=== PATIENT | male | born 1960 | race Caucasian/White ===

== ENCOUNTER 2017-05-24 11:52 | Emergency (ER) | payer OTHER ==
--- NOTE | 2017-05-24 13:29 | DIAGNOSTIC IMAGING REPORT ---
PROCEDURE: XR CHEST 1 VIEW INDICATION: HISTORY OF CVA TECHNIQUE: Portable AP view 01:20 p.m. COMPARISON: None. FINDINGS: Lungs are clear. Heart and mediastinum are normal. Thorax is normal. IMPRESSION: 1. Negative chest.
--- NOTE | 2017-05-24 14:30 | DIAGNOSTIC IMAGING REPORT ---
PROCEDURE: CT HEAD WITHOUT CONTRAST INDICATION: Unilateral weakness. History of prior CVA. TECHNIQUE: Noncontrast axial images with sagittal and coronal reformations. COMPARISON: None. FINDINGS: There is a 6 cm x 2.5 cm low density area in the left parietal occipital region most compatible with an old area of infarction. An acute or subacute infarction is less likely. The rest of the brain and ventricles are normal. No evidence of an hemorrhage. No evidence of hydrocephalous. Sinuses and mastoids are normal. IMPRESSION: 1. There is a large 6 cm x 2.5 cm low density area left parietal occipital region most consistent with an old area of infarction. An acute or subacute area of ischemia is considered less likely. 2. Otherwise negative head CT. 3. Findings discussed with Dr. Samantha Burns at [address] scans at this facility use dose modulation, iterative reconstruction, and/or weight-based dosing when appropriate to reduce radiation dose to as low as reasonably achievable.
--- NOTE | 2017-05-24 17:29 | DIAGNOSTIC IMAGING REPORT ---
PROCEDURE: MR BRAIN W/WO CONTRAST INDICATION: STROKE SX TECHNIQUE: Multiplanar multisequence MRI imaging of the brain without contrast. Post administration of 10 ml ProHance gadolinium based IV contrast, three plane T1 fat sat sequences were obtained. COMPARISON: None. FINDINGS: The midline structures are normally formed. The ventricular system is normal in size. Basal cisterns are patent. Flow voids in the major intracranial vessels are normal. No vascular malformations seen post contrast. There is an old left posterior temporal infarct. No restricted diffusion to suggest acute ischemia. No evidence of acute or chronic intraparenchymal or extra-axial hemorrhage. No mass, mass effect, or midline shift. No suspicious enhancement. Normal signal in the visible bones. The sinuses are normally aerated. Visible extracranial soft tissues including the orbits are normal. IMPRESSION: 1. Old left posterior temporal infarct. 2. Minimal periventricular small-vessel ischemic disease.
--- NOTE | 2017-05-24 17:49 | DIAGNOSTIC IMAGING REPORT ---
PROCEDURE: MRA HEAD WITHOUT CONTRAST INDICATION: Left arm pain and weakness. Prior CVA. TECHNIQUE: Thin-cut gradient axial images with 3D MIP reconstructions in sagittal, axial, and coronal projections. COMPARISON: Comparison is made to MRI brain and head CT studies today (05/24/2017). FINDINGS: [place] and intracranial vessels are within normal limits. There is no evidence of aneurysm or vascular malformation. No evidence of stenosis or occlusion. IMPRESSION: 1. Normal MR angiogram of the [place] and intracranial vessels. 2. Findings discussed with Dr. Samantha Burns.
--- NOTE | 2017-05-24 17:49 | DIAGNOSTIC IMAGING REPORT ---
PROCEDURE: MRA HEAD WITHOUT CONTRAST INDICATION: Left arm pain and weakness. Prior CVA. TECHNIQUE: Thin-cut gradient axial images with 3D MIP reconstructions in sagittal, axial, and coronal projections. COMPARISON: Comparison is made to MRI brain and head CT studies today (05/24/2017). FINDINGS: [place] and intracranial vessels are within normal limits. There is no evidence of aneurysm or vascular malformation. No evidence of stenosis or occlusion. IMPRESSION: 1. Normal MR angiogram of the [place] and intracranial vessels. 2. Findings discussed with Dr. Samantha Burns.
--- NOTE | 2017-05-24 17:53 | ED NURSING NOTES ---
Clinical Report - Nurses [address] [place] [address] 05/24/2017 11:55 [id number] Triage time 11:56. Acuity: LEVEL 3. Chief Complaint: NUMBNESS and (Left arm). Alert. No acute distress. CL COMA SCORE: [place] Coma Scale: 15- eyes open spontaneously (4); best verbal response- oriented x 4 (5); best motor response- obeys commands (6). --12:03 Carito Castro R.N. <<STRICKEN ENTRY-- 11:56 05/24/17. BP: 187/104. HR: 70. RR: 17. O2 saturation: 99%. Temp: 97.6 F (oral). Pain level now: 0/10. --12:03 Carito Castro R.N. --END STRIKE>> Correction --12:06 Carito Castro R.N. 12:06 05/24/17. BP: 184/104 taken on the left arm. HR: 70. RR: 17. O2 saturation: 99% on room air. Temp: 97.6 F. Pain level now: 0/10. --12:07 Carito Castro R.N. Weight: 116.1 kg stated. Height/Length: 70 inches Per Patient. BMI: 36.7. --11:59 Carito Castro R.N. Medications Atorvastatin Calcium Oral (Tablet 40 mg), daily. --11:59 Carito Castro R.N. Lisinopril Oral 5 mg, daily. --12:00 Carito Castro R.N. Metoprolol Tartrate Oral (Tablet 25 mg), bid. --12:00 Carito Castro R.N. Medication/allergy information source: the patient's pill bottles. --12:03 Carito Castro R.N. Allergies No Known Drug Allergy. --11:58 Carito Castro R.N. History Arrived by private vehicle. Historian: patient. Accompanied by family. Primary physician ([facility]). This started about 25 minutes ago. ( felt numbness on top of left forearm, lasted about - minutes, now gone). SOCIAL HX: Never smoker. Occasional alcohol use. No drug use. FALL RISK ASSESSMENT: Fall risk assessment completed. No fall risk identified. FUNCTIONAL ASSESSMENT: Functional assessment: no impairments noted. LEARNING NEEDS ASSESSMENT: The learning needs assessment revealed no barriers. --12:03 Carito Castro R.N. PROBLEMS: CVA - Cerebrovascular Accident. --12:59 Angel Ramírez R.N. Chest Pain. Rectal Bleed. --13:00 Angel Ramírez R.N. ADDITIONAL SURGERIES: Cardiac Catheterization. --12:59 Angel Ramírez R.N. Assessment GENERAL / NEURO / PSYCH: Alert. Oriented X 4. Appears in no acute distress. Patient appears calm and cooperative. RESPIRATORY: Respirations not labored. SKIN: Skin is warm and dry. --12:03 Carito Castro R.N. Interventions ID band on patient. To treatment room. --12:03 Carito Castro R.N. PHYSICAL ASSESSMENT 12:04 05/24/17. Ambulatory to room. Patient gowned. GENERAL / NEURO / PSYCH: Awake. Oriented X 4. Alert. Appears in no acute distress. Speech normal. Mood/affect normal. Moves all extremities. RESPIRATORY: Respirations not labored. CVS: Cardiac rhythm: sinus rhythm; PACs. SKIN: Skin is warm and dry. --12:04 Carito Castro R.N. NURSING PROGRESS NOTES 12:05/24/17. sanitation worker cleaning equipment, pulse oximeter and NIBP monitor placed on patient. Patient gowned. Head of bed elevated. Call light placed in reach. Side rails up x 1. Bed placed in lowest position. Brakes of bed on. --12:04 Carito Castro R.N. 12:05/24/17. BP: 184/107 taken on the right arm. HR: 74. RR: 18. --12:06 Carito Castro R.N. 12:12 05/24/2017 Site #1 started via IV in the left hand with an 20g angiocath; two attempts. Saline lock flushed with 10 mL saline (unable to draw blood from IV). --12:17 Angel Ramírez R.N. 13:03 05/24/17. ( spoke with staff stating that pt had a chest pains/possible [place] in the past at [place], [place]. Pt also had stroke care at [place], [place], [place]). --13:03 Angel Ramírez R.N. 13:23 05/24/17. Cardiac rhythm: normal sinus rhythm; PACs. --13:23 Angel Ramírez R.N. 13:21 05/24/17. BP: 187/99. HR: 61. RR: 16. O2 saturation: 100% on room air. --13:23 Angel Ramírez R.N. 14:05 05/24/17. Patient transported to CT by stretcher with tech. --14:05 Angel Ramírez R.N. 14:38 05/24/17. The patient is calm and resting quietly. Overall patient status is the same- he states feels the same. GENERAL / NEURO / PSYCH: Alert. Oriented X 4. Affect appears normal. RESPIRATORY: No respiratory distress. SKIN: Skin is warm and dry. --14:38 Carito Castro R.N. 14:37 05/24/17. BP: 179/84. HR: 50. RR: 12. O2 saturation: 99% on room air. Pain level now: 0/10. --14:38 Carito Castro R.N. 15:40. ( MRI consent completed). --15:51 Angel Ramírez R.N. 15:52 05/24/17. Patient transported to MRI by wheelchair with tech. --15:52 Angel Ramírez R.N. <<STRICKEN ENTRY-- 17:19 05/24/17. Patient returned from MRI by stretcher with tech. --17:19 Angel Ramírez R.N. --END STRIKE>> Correction --17:19 Angel Ramírez R.N. 17:19 05/24/17. Patient returned from MRI by wheelchair with tech. --17:20 Angel Ramírez R.N. 17:30 05/24/17. --17:30 Angel Ramírez R.N. 17:29 05/24/17. BP: 176/102. HR: 76. RR: 16. O2 saturation: 99% on room air. Pain level now: 0/10. --17:30 Angel Ramírez R.N. DISPOSITION / DISCHARGE 18:07 05/24/2017 Site #1 removed upon discharge. Catheter intact. Bandaid applied. --18:07 Angel Ramírez R.N. 18:08 05/24/17. Condition at departure: improved. The goals identified in the patient's plan of care were met. No learning barriers present. Discharge instructions provided and reviewed with the patient. Reviewed warnings. Reviewed medication(s). Treatments reviewed. Patient verbalized understanding. Written instructions provided in [place]. The patient was discharged by the physician. He was discharged home and accompanied by family. He left the Emergency Department ambulatory and via private vehicle. Family member driving. FALL RISK ASSESSMENT: Fall risk assessment completed. No fall risk identified. --18:08 Angel Ramírez R.N. 18:07 05/24/17. BP: 148/98. HR: 63. RR: 14. O2 saturation: 100% on room air. Temp: 98.2 F (oral). Pain level now: 0/10. --18:08 Angel Ramírez R.N. 18:08 05/24/17. Departure time: 18:08 May 24 2017. --18:08 Angel Ramírez R.N. Locked/Released at 05/27/2017 10:48 by Carito Castro R.N.
--- NOTE | 2017-05-24 17:53 | ED NURSING NOTES ---
Clinical Report - Nurses [address] [place] [address] 05/24/2017 11:55 [id number] Triage time 11:56. Acuity: LEVEL 3. Chief Complaint: NUMBNESS and (Left arm). Alert. No acute distress. CL COMA SCORE: [place] Coma Scale: 15- eyes open spontaneously (4); best verbal response- oriented x 4 (5); best motor response- obeys commands (6). --12:03 Carito Castro R.N. <<STRICKEN ENTRY-- 11:56 05/24/17. BP: 187/104. HR: 70. RR: 17. O2 saturation: 99%. Temp: 97.6 F (oral). Pain level now: 0/10. --12:03 Carito Castro R.N. --END STRIKE>> Correction --12:06 Carito Castro R.N. 12:06 05/24/17. BP: 184/104 taken on the left arm. HR: 70. RR: 17. O2 saturation: 99% on room air. Temp: 97.6 F. Pain level now: 0/10. --12:07 Carito Castro R.N. Weight: 116.1 kg stated. Height/Length: 70 inches Per Patient. BMI: 36.7. --11:59 Carito Castro R.N. Medications Atorvastatin Calcium Oral (Tablet 40 mg), daily. --11:59 Carito Castro R.N. Lisinopril Oral 5 mg, daily. --12:00 Carito Castro R.N. Metoprolol Tartrate Oral (Tablet 25 mg), bid. --12:00 Carito Castro R.N. Medication/allergy information source: the patient's pill bottles. --12:03 Carito Castro R.N. Allergies No Known Drug Allergy. --11:58 Carito Castro R.N. History Arrived by private vehicle. Historian: patient. Accompanied by family. Primary physician ([facility]). This started about 25 minutes ago. ( felt numbness on top of left forearm, lasted about - minutes, now gone). SOCIAL HX: Never smoker. Occasional alcohol use. No drug use. FALL RISK ASSESSMENT: Fall risk assessment completed. No fall risk identified. FUNCTIONAL ASSESSMENT: Functional assessment: no impairments noted. LEARNING NEEDS ASSESSMENT: The learning needs assessment revealed no barriers. --12:03 Carito Castro R.N. PROBLEMS: CVA - Cerebrovascular Accident. --12:59 Angel Ramírez R.N. Chest Pain. Rectal Bleed. --13:00 Angel Ramírez R.N. ADDITIONAL SURGERIES: Cardiac Catheterization. --12:59 Angel Ramírez R.N. Assessment GENERAL / NEURO / PSYCH: Alert. Oriented X 4. Appears in no acute distress. Patient appears calm and cooperative. RESPIRATORY: Respirations not labored. SKIN: Skin is warm and dry. --12:03 Carito Castro R.N. Interventions ID band on patient. To treatment room. --12:03 Carito Castro R.N. PHYSICAL ASSESSMENT 12:04 05/24/17. Ambulatory to room. Patient gowned. GENERAL / NEURO / PSYCH: Awake. Oriented X 4. Alert. Appears in no acute distress. Speech normal. Mood/affect normal. Moves all extremities. RESPIRATORY: Respirations not labored. CVS: Cardiac rhythm: sinus rhythm; PACs. SKIN: Skin is warm and dry. --12:04 Carito Castro R.N. NURSING PROGRESS NOTES 12:05/24/17. coding spec, pulse oximeter and NIBP monitor placed on patient. Patient gowned. Head of bed elevated. Call light placed in reach. Side rails up x 1. Bed placed in lowest position. Brakes of bed on. --12:04 Carito Castro R.N. 12:05/24/17. BP: 184/107 taken on the right arm. HR: 74. RR: 18. --12:06 Carito Castro R.N. 12:12 05/24/2017 Site #1 started via IV in the left hand with an 20g angiocath; two attempts. Saline lock flushed with 10 mL saline (unable to draw blood from IV). --12:17 Angel Ramírez R.N. 13:03 05/24/17. ( spoke with staff stating that pt had a chest pains/possible [place] in the past at [place], [place]. Pt also had stroke care at [place], [place], [place]). --13:03 Angel Ramírez R.N. 13:23 05/24/17. Cardiac rhythm: normal sinus rhythm; PACs. --13:23 Angel Ramírez R.N. 13:21 05/24/17. BP: 187/99. HR: 61. RR: 16. O2 saturation: 100% on room air. --13:23 Angel Ramírez R.N. 14:05 05/24/17. Patient transported to CT by stretcher with tech. --14:05 Angel Ramírez R.N. 14:38 05/24/17. The patient is calm and resting quietly. Overall patient status is the same- he states feels the same. GENERAL / NEURO / PSYCH: Alert. Oriented X 4. Affect appears normal. RESPIRATORY: No respiratory distress. SKIN: Skin is warm and dry. --14:38 Carito Castro R.N. 14:37 05/24/17. BP: 179/84. HR: 50. RR: 12. O2 saturation: 99% on room air. Pain level now: 0/10. --14:38 Carito Castro R.N. 15:40. ( MRI consent completed). --15:51 Angel Ramírez R.N. 15:52 05/24/17. Patient transported to MRI by wheelchair with tech. --15:52 Angel Ramírez R.N. <<STRICKEN ENTRY-- 17:19 05/24/17. Patient returned from MRI by stretcher with tech. --17:19 Angel Ramírez R.N. --END STRIKE>> Correction --17:19 Angel Ramírez R.N. 17:19 05/24/17. Patient returned from MRI by wheelchair with tech. --17:20 Angel Ramírez R.N. 17:30 05/24/17. --17:30 Angel Ramírez R.N. 17:29 05/24/17. BP: 176/102. HR: 76. RR: 16. O2 saturation: 99% on room air. Pain level now: 0/10. --17:30 Angel Ramírez R.N. DISPOSITION / DISCHARGE 18:07 05/24/2017 Site #1 removed upon discharge. Catheter intact. Bandaid applied. --18:07 Angel Ramírez R.N. 18:08 05/24/17. Condition at departure: improved. The goals identified in the patient's plan of care were met. No learning barriers present. Discharge instructions provided and reviewed with the patient. Reviewed warnings. Reviewed medication(s). Treatments reviewed. Patient verbalized understanding. Written instructions provided in [place]. The patient was discharged by the physician. He was discharged home and accompanied by family. He left the Emergency Department ambulatory and via private vehicle. Family member driving. FALL RISK ASSESSMENT: Fall risk assessment completed. No fall risk identified. --18:08 Angel Ramírez R.N. 18:07 05/24/17. BP: 148/98. HR: 63. RR: 14. O2 saturation: 100% on room air. Temp: 98.2 F (oral). Pain level now: 0/10. --18:08 Angel Ramírez R.N. 18:08 05/24/17. Departure time: 18:08 May 24 2017. --18:08 Angel Ramírez R.N. Locked/Released at 05/27/2017 10:48 by Carito Castro R.N.
--- NOTE | 2017-05-24 17:53 | ED ORDER SUMMARY ---
..... Patient: BRANDO ALVARADO OrderSheet [facility] VisitID: [id number] [place] [address] 56y, M Registration Date/Time: 05/24/2017 ORDER SHEET Weight: 116.1 kg (stated) Allergies: No Known Drug Allergy GENERAL ORDERS: Chest 1V Urgent (13:03 05/24/2017 JBoardley R.N. per protocol) (Ack 13:06 PWeiler ER Tech1) (13:17 JBoardley R.N.) Debt Collector (Continuous) (13:04 05/24/2017 JBoardley R.N. per protocol) (13:05 JBoardley R.N.) POC Glucose (13:05 05/24/2017 JBoardley R.N. per protocol) (13:05 JBoardley R.N.) EKG - ER Stat (13:05 05/24/2017 JBoardley R.N. per protocol) (13:06 JBoardley R.N.) CBC w Diff Urgent (13:05 05/24/2017 JBoardley R.N. per protocol) (Ack 13:06 PWeiler ER Tech1) (13:09 PWeiler ER Tech1) CMP Urgent (13:05 05/24/2017 JBoardley R.N. per protocol) (Ack 13:06 PWeiler ER Tech1) (13:09 PWeiler ER Tech1) PT with INR Urgent (13:05 05/24/2017 JBoardley R.N. per protocol) (Ack 13:06 PWeiler ER Tech1) (13:09 PWeiler ER Tech1) PTT Urgent (13:05 05/24/2017 JBoardley R.N. per protocol) (Ack 13:06 PWeiler ER Tech1) (13:09 PWeiler ER Tech1) UA-Culture if indicated Urgent (13:19 05/24/2017 JBoardley R.N. per protocol) (13:23 PWeiler ER Tech1) CT Head wo Cont Urgent (13:27 05/24/2017 JBoardley R.N. verbal order read back to Winston JOHNSON) (Ack 13:31 PWeiler ER Tech1) (14:12 JBoardley R.N.) MRI Brain w/wo IACS w/wo Cont (Not Applicable) Urgent (15:14 05/24/2017 Winston JOHNSON) (Ack 15:27 PWeiler ER Tech1) (17:29 JBoardley R.N.) MRA Head wo Cont (Not Applicable) Urgent (15:14 05/24/2017 Winston JOHNSON) (Ack 15:27 PWeiler ER Tech1) (17:29 JBoardley R.N.) MEDICATION ORDERS: IV FLUIDS: IV Saline Lock (12:16 05/24/2017 JBoarbrendan R.N. per protocol) (12:17 JBoardley R.N.) ORDER SHEET NOTES: [Electronically signed by Samantha Burns MD (23:19 05/24/2017)] [Electronically signed by Carito Castro R.N. (10:48 05/27/2017)] [Electronically locked/signed by Carito Castro R.N. (10:48 05/27/2017)]
--- NOTE | 2017-05-24 17:53 | ED CLINICAL REPORT ---
Clinical Report - Physicians/Mid Levels Formerly [facility] [address] [place] [address] 05/24/2017 11:55 Patient: BRANDO ALVARADO Time Seen: 12:09. Arrived- By private vehicle. Historian- patient. HISTORY OF PRESENT ILLNESS Chief Complaint: PARESTHESIA. The patient has had numbness. No weakness, impaired speech or swallowing, visual disturbance or recent fall. No difficulty walking. This started today and is now gone. At its maximum deficit described as mild. When seen in the E.D., it was gone. No dizziness, altered mental status, seizure or blackouts. Usually is alert and oriented X3 and has normal mobility. (Patient states that the symptoms started about 2 hours ago. He notice that when he flexed his left arm the dorsum of his forearm felt numb. Patient states he moved the arm around but it didn't seem to help the numbness. He states that finally the numbness subsided on its own; however he was concerned because he does a TIA which caused slurring of speech and expressive aphasia about 1 year ago, and so he decided to come in and get checked out. Patient states that he was seen for his TIA in [facility], where he used to live. He states that he was placed on aspirin and later per OMAR that; however he developed a GI bleed in November he was taken off the per [facility] that. No other anticoagulants of any strength were restarted at any time. Patient states that he moved from [facility] to [place] subsequently, and has not seen a physician since. 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 Patient denies any other neurologic deficits and states he is otherwise been feeling well.). Similar symptoms previously: None. Recent medical care: Not recently seen/assessed. REVIEW OF SYSTEMS No fever, headache, head injury, chest pain or difficulty breathing. No cough, sputum production, sore throat, abdominal pain or nausea. No diarrhea, black stools, difficulty with urination, skin rash or enlarged lymph nodes. No joint pain, vomiting, bloody stools or back pain. All systems otherwise negative, except as recorded above. PAST HISTORY Problems: Myocardial Infarction. Rectal Bleed. CVA - Cerebrovascular Accident. Additional Surgeries: Cardiac Catheterization. Medications: Metoprolol Tartrate Oral (Tablet 25 mg), bid. Lisinopril Oral 5 mg, daily. Atorvastatin Calcium Oral (Tablet 40 mg), daily. Allergies: No Known Drug Allergy. SOCIAL HISTORY Never smoker. Occasional alcohol use. No drug use. ADDITIONAL NOTES The nursing notes have been reviewed. PHYSICAL EXAM Vital Signs: 05/24/2017 11:56 BP: 187/104. HR: 70. RR: 17. O2 saturation: 99%. Temp: 97.6 F. Pain level now: 0/10. Have been reviewed. Appearance: Alert. No acute distress. Head: Head atraumatic. Eyes: Pupils equal, round and reactive to light. ENT: Normal ENT inspection. Airway intact. Neck: Normal inspection. Neck supple. CVS: Normal heart rate and rhythm. Heart sounds normal. Pulses normal. Respiratory: No respiratory distress. Breath sounds normal. Abdomen: Soft and nontender. No organomegaly. Back: Normal inspection. Skin: Skin warm and dry. Normal skin color. No rash. Normal skin turgor. Extremities: Extremities exhibit normal ROM. No lower extremity edema. Neuro: Alert. Oriented X 3. Mood/affect normal. Speech normal. Cranial nerves normal (as tested). No cerebellar findings. No motor deficit. No sensory deficit. LABS, X-RAYS, AND EKG EKG: EKG time: (1159). No acute process. No acute ischemia. Normal sinus rhythm. Rate: 60. Normal P waves. Normal SAMANTHA. Normal QRS complex. Normal axis. Normal ST and T waves, QT and QTc. Prior EKG unavailable. The study has been interpreted contemporaneously by me. The study has been independently viewed by me. The EKG appears to be a good tracing. I agree with and confirm the computer reading of the EKG. Rhythm Strip #1: Time: (1152). Rate= 63. Normal sinus rhythm. Regular rhythm. Narrow QRS complexes. No ectopy. Conduction normal. Normal ST segments and T waves. The study was interpreted by me. CT Head: No bony abnormalities, no hemorrhage, no intracranial mass, no midline shift and no hydrocephalus. (Large left hemispheric hypodensity, uncertain chronicity. MRI recommended.). Head CT performed without contrast. The study was independently viewed by me, interpreted by the radiologist and contemporaneously by me and discussed with the radiologist. Prior studies were not available for comparison. MRI Brain: No acute changes. No hemorrhage. No intracranial mass. No midline shift. No hydrocephalus, atrophy or bony abnormalities. Sinuses normal. MRA Brain: Normal study. No significant lesions present. Study type: MRI with and without contrast. MRA without contrast. Prior studies were not available for comparison. The study was interpreted by the radiologist and discussed with the radiologist. Laboratory Tests: UA-Culture if indicated: (OSCAR: 05/24/2017 13:15) ( [facility] [place] 05/[place] 13:40) Final results Test Result Flag Units (Reference) URINE COLOR YELLOW URINE APPEARANCE CLEAR URINE GLUCOSE NEGATIVE (NEGATIVE) URINE BILIRUBIN NEGATIVE (NEGATIVE) URINE KETONE NEGATIVE (NEGATIVE) URINE SPECIFIC GRAVITY 1.010 (1.010-1.030) URINE PH 7.0 (5.0-8.0) URINE PROTEIN NEGATIVE (NEGATIVE) URINE UROBILINOGEN 0.2 EU/dL (0.2-1.0) URINE NITRITE NEGATIVE (NEGATIVE) URINE BLOOD TRACE-INTACT (NEGATIVE) URINE LEUK ESTERASE NEGATIVE (NEGATIVE) URINE RBC 0-1 rbc/hpf (0-1) URINE WBC NONE SEEN wbc/hpf (0-1) URINE EPITHELIAL CELLS NONE SEEN EPI/hpf (0-5) URINE BACTERIA NONE SEEN (NONE SEEN) URINE COMMENT CULT NOT INDICATED URINE CULTURES ARE SET-UP BASED ON THE FOLLOWING CRITERIA:POSITIVE NITRITEPOSITIVE LEUKOCYTE ESTERASEGREATER THAN 10 WHITE BLOOD CELLSMODERATE (2+) OR GREATER BACTERIA CBC w Diff: (OSCAR: 05/24/2017 13:10) ( [facility] 05/24/2017 13:22) Final results Test Result Flag Units (Reference) WHITE BLOOD COUNT 7.4 K/uL (4.5-11.5) RED BLOOD COUNT 5.15 M/uL (4.50-5.90) HEMOGLOBIN 14.9 gm/dL (13.5-17.5) HEMATOCRIT 44.9 % (41.0-53.0) MEAN CELL VOLUME 87 fL (80-100) MEAN CORPUSCULAR HGB 29 pg (26-34) MEAN CORPUSCULAR HGB CONC 33 g/dL (31-37) RED CELL DISTRIBUTION WIDTH 14.2 % (11.6-14.8) PLATELET COUNT 187 K/uL (150-400) NEUTROPHIL % 74.4 % (50-75) LYMPH % 15.3 L % (25-40) MONO % 7.9 % (3-14) EOSINOPHIL % 1.8 % (0-4) BASOPHIL % 0.6 % (0-2) PT with INR: (OSCAR: 05/24/2017 13:10) ( [facility] 05/24/2017 13:31) Final results Test Result Flag Units (Reference) INR 1.0 (0.8-1.2) Low Intensity Therapy: INR 1.5-2.0 PT range 18.5-23.1Mod.Intensity Therapy: INR 2.0-3.0 PT range 23.1-31.5High Intensity Therapy: INR 2.5-3.5 PT range 27.4-35.5High Intensity Therapy 2: INR 3.0-4.0 PT range 31.5-39.3 APTT 26 SECONDS (24-34) CMP: (OSCAR: 05/24/2017 13:10) ( [facility] 05/24/2017 15:04) Final results Test Result Flag Units (Reference) GLUCOSE 101 mg/dL (70-110) BUN 13 mg/dL (7-18) CREATININE 1.0 mg/dL (0.6-1.3) Estimated GFR >60 mL/min Estimated GFR- >60 mL/min Note: Persistent reduction over 3 months in eGFR<60 mL/min/1.73 m2 defines CKD. Patients with eGFR values>=60 mL/min/1.73 m2 may also have CKD if evidence ofpersistent proteinuria. Additional information may be foundat www.kidney.org. SODIUM 141 mmol/L (136-145) POTASSIUM 3.9 mmol/L (3.5-5.1) CHLORIDE 104 mmol/L (98-107) CARBON DIOXIDE 28 mmol/L (21-32) CALCIUM 8.4 L mg/dL (8.5-10.1) TOTAL PROTEIN 7.2 g/dL (6.4-8.2) ALBUMIN 3.8 g/dL (3.3-5.0) BILIRUBIN, TOTAL 0.8 mg/dL (0.0-1.0) ALKALINE PHOSPHATASE 145 H U/L (46-116) AST (SGOT) 58 H U/L (15-37) ALT (SGPT) 31 U/L (12-78) . Pulse Oximetry: 05/24/2017 11:56 O2 saturation: 99%. (FIO2 - room air). Interpretation: normal. PROGRESS AND PROCEDURES Course of Care: Patient's symptoms had been fairly mild, and were resolved by the time of his visit to the emergency department. However, I was concerned regarding his history of MD and CVA in recent years and I did feel he should be worked up particularly since he has been off any sort of anticoagulation since November. CT scan of the head showed an oldleft hemispheric CVA, though the findings on CT seemed much more severe than the symptoms the patient described of his previous CVA. There was also unclear to what degree this finding was chronic versus subacute, and so an MRI and MRA were ordered. These did not show any acute lesions. I did discuss with the patient that it is important that he get back on at least a baby aspirin per day, as well as getting established with a primary care physician. At this point in time the patient is asymptomatic, and the rest of his workup is negative, and I do feel he is stable for discharge home. Patient counseled in person regarding the patient's stable condition, test results, diagnosis and need for follow-up. Concerns were addressed. Old medical records reviewed. Disposition: Discharged. Condition: stable and improved. CLINICAL IMPRESSION Paresthesia INSTRUCTIONS Warnings: GENERAL WARNINGS: Return or contact your physician immediately if your condition worsens or changes unexpectedly, if not improving as expected, or if other problems arise. Your Current Medications: CONTINUE TAKING THE FOLLOWING MEDICATIONS: Atorvastatin Calcium Oral : Tablet 40 mg, daily. Lisinopril Oral : 5 mg daily. Metoprolol Tartrate Oral : Tablet 25 mg, bid. OTC Medications: Aspirin 81 mg (available over the counter): take 1 orally every 24 hours. Dispense thirty (30). One refill. Follow-up: Follow up with your doctor Michael. Call for the next available appointment. Reason for referral: Establish care. Understanding of the discharge instructions verbalized by patient and family. (Electronically signed by Samantha Burns MD 05/24/2017 23:19)
--- NOTE | 2017-05-24 17:53 | ED ORDER SUMMARY ---
..... Patient: BRANDO ALVARADO OrderSheet [facility] VisitID: [id number] [place] [address] 56y, M Registration Date/Time: 05/24/2017 ORDER SHEET Weight: 116.1 kg (stated) Allergies: No Known Drug Allergy GENERAL ORDERS: Chest 1V Urgent (13:03 05/24/2017 JBoardley R.N. per protocol) (Ack 13:06 PWeiler ER Tech1) (13:17 JBoardley R.N.) Rn Oncology Research (Continuous) (13:04 05/24/2017 JBoardley R.N. per protocol) (13:05 JBoardley R.N.) POC Glucose (13:05 05/24/2017 JBoardley R.N. per protocol) (13:05 JBoardley R.N.) EKG - ER Stat (13:05 05/24/2017 JBoardley R.N. per protocol) (13:06 JBoardley R.N.) CBC w Diff Urgent (13:05 05/24/2017 JBoardley R.N. per protocol) (Ack 13:06 PWeiler ER Tech1) (13:09 PWeiler ER Tech1) CMP Urgent (13:05 05/24/2017 JBoardley R.N. per protocol) (Ack 13:06 PWeiler ER Tech1) (13:09 PWeiler ER Tech1) PT with INR Urgent (13:05 05/24/2017 JBoardley R.N. per protocol) (Ack 13:06 PWeiler ER Tech1) (13:09 PWeiler ER Tech1) PTT Urgent (13:05 05/24/2017 JBoardley R.N. per protocol) (Ack 13:06 PWeiler ER Tech1) (13:09 PWeiler ER Tech1) UA-Culture if indicated Urgent (13:19 05/24/2017 JBoardley R.N. per protocol) (13:23 PWeiler ER Tech1) CT Head wo Cont Urgent (13:27 05/24/2017 JBoardley R.N. verbal order read back to Winston JOHNSON) (Ack 13:31 PWeiler ER Tech1) (14:12 JBoardley R.N.) MRI Brain w/wo IACS w/wo Cont (Not Applicable) Urgent (15:14 05/24/2017 Winston JOHNSON) (Ack 15:27 PWeiler ER Tech1) (17:29 JBoardley R.N.) MRA Head wo Cont (Not Applicable) Urgent (15:14 05/24/2017 Winston JOHNSON) (Ack 15:27 PWeiler ER Tech1) (17:29 JBoardley R.N.) MEDICATION ORDERS: IV FLUIDS: IV Saline Lock (12:16 05/24/2017 JBoarbrendan R.N. per protocol) (12:17 JBoardley R.N.) ORDER SHEET NOTES: [Electronically signed by Samantha Burns MD (23:19 05/24/2017)] [Electronically signed by Carito Castro R.N. (10:48 05/27/2017)] [Electronically locked/signed by Carito Castro R.N. (10:48 05/27/2017)]
--- NOTE | 2017-05-27 10:48 | ED MED RECONCILIATION SUMMARY ---
Patient: BRANDO ALVARADO Medication Reconciliation Report [facility] VisitID: [id number] [address] [place] [address] 56y, M Registration Date/Time: 05/24/2017 Weight: 116.1 kg Height/Length: 70 in. BMI: 36.7 ALLERGIES: No Known Drug Allergy The patient's Home Medications are listed below: CONTINUE TAKING THE FOLLOWING MEDICATIONS: Atorvastatin Calcium Oral (40 mg), daily Lisinopril Oral 5 mg, daily Metoprolol Tartrate Oral (25 mg), bid The source(s) of the original Home Medication information: patient's pill bottles The following Medications were given to the patient in the Emergency Department: None. The following Medications were prescribed to the patient: Aspirin 81 mg (available over the counter): take 1 orally every 24 hours. Dispense thirty (30). One refill. -- Samantha Burns MD
--- NOTE | 2017-05-27 10:48 | ED MAR SUMMARY ---
..... Medication Administration Record Located Within [facility] [address], [place] [id number] Patient: BRANDO ALVARADO Visit ID: [id number] 56y, M Weight: 116.1 kg Height/Length: 70 in BMI: 36.7 ALLERGIES: No Known Drug Allergy
--- NOTE | 2017-05-27 10:48 | ED MAR SUMMARY ---
..... Medication Administration Record [facility] [address], [place] [id number] Patient: BRANDO ALVARADO Visit ID: [id number] 56y, M Weight: 116.1 kg Height/Length: 70 in BMI: 36.7 ALLERGIES: No Known Drug Allergy
--- NOTE | 2017-05-27 10:48 | ED DISCHARGE INSTRUCTIONS ---
Patient: BRANDO ALVARADO General Instructions [facility] VisitID: [id number] [place] [address] 56y, M Registration Date/Time: 05/24/2017 Paresthesia INSTRUCTIONS Warnings: GENERAL WARNINGS: Return or contact your physician immediately if your condition worsens or changes unexpectedly, if not improving as expected, or if other problems arise. Your Current Medications: CONTINUE TAKING THE FOLLOWING MEDICATIONS: Atorvastatin Calcium Oral : Tablet 40 mg, daily. Lisinopril Oral : 5 mg daily. Metoprolol Tartrate Oral : Tablet 25 mg, bid. OTC Medications: Aspirin 81 mg (available over the counter): take 1 orally every 24 hours. Dispense thirty (30). One refill. Follow-up: Follow up with your doctor Michael. Call for the next available appointment. Reason for referral: Establish care. Understanding of the discharge instructions verbalized by patient and family. ADDITIONAL INFORMATION Paraesthesias Paraesthesia refers to a burning or prickling sensation that is sometimes felt in the hands, arms, legs or feet. It can also occur in other parts of the body. It can also feel like tingling or numbness, skin crawling or itching.The sensation is usually painless. Most people have experienced pins and needles. This feeling happens when legs have been crossed for too long and pressure is placed on a nerve. This is a temporary paraesthesia. It quickly goes away once the pressure is relieved. There are many possible causes for chronic paraesthesias. These include such disorders as stroke, herniated disk (pressing on a nerve), trapped nerve in the shoulder, elbow or wrist (such as carpal tunnel syndrome), vitamin deficiencies or even certain medicines. Laboratory tests are needed to make an accurate diagnosis. These tests may include blood tests, X-ray, CT (computerized tomography) scan or a muscle test (electromyography).Depending on the cause, treatment may include physical therapy. Home Care: Do not make any changes to your medicines without advice from your doctor. If vitamins have been prescribed, remember to take them daily at the recommended dose. Because of a decrease in feeling, a numb hand or foot may be more prone to injury. Take care to protect these areas from cuts, bumps, bruises, barnes or other injury. Keep your nails trimmed and wash your hands and feet often. Wear shoes that fit well to avoid pressure points, blisters and ulcers. Look at your hands and feet carefully (including the soles of your feet and between your toes) at least once a week and notify your doctor of any open wounds or signs of infection. Follow Up with your doctor or as advised by our staff. You may need further testing to determine the exact cause of your paraesthesia. [NOTE: If blood tests, X-ray, CT scan or electromyography were done, specialists will review them. You will be notified of any new findings that may affect your care.] Get Prompt Medical Attention if any of the following occur: Numbness or weakness of the face, one arm or one leg Slurred speech, confusion, trouble speaking, walking or seeing Severe headache, fainting spell, dizziness or seizure Chest, arm, neck or upper back pain Loss of bladder or bowel control Open wound with redness, swelling or pus You have been given the following additional information: Paraesthesias (Electronically signed by Samantha Burns MD 05/24/2017 23:19)
--- NOTE | 2017-05-27 10:48 | ED MED RECONCILIATION SUMMARY ---
Patient: BRANDO ALVARADO Medication Reconciliation Report Located Within [facility] VisitID: [id number] [address] [place] [address] 56y, M Registration Date/Time: 05/24/2017 Weight: 116.1 kg Height/Length: 70 in. BMI: 36.7 ALLERGIES: No Known Drug Allergy The patient's Home Medications are listed below: CONTINUE TAKING THE FOLLOWING MEDICATIONS: Atorvastatin Calcium Oral (40 mg), daily Lisinopril Oral 5 mg, daily Metoprolol Tartrate Oral (25 mg), bid The source(s) of the original Home Medication information: patient's pill bottles The following Medications were given to the patient in the Emergency Department: None. The following Medications were prescribed to the patient: Aspirin 81 mg (available over the counter): take 1 orally every 24 hours. Dispense thirty (30). One refill. -- Samantha Burns MD
== END 2017-05-24 18:08 | disposition home or self-care (01) ==
LOC: ED SRH 11:52
DX: R20.2 Paresthesia of skin (principal); Z86.73 Personal history of transient ischemic attack (TIA), and cerebral infarction without residual deficits
CPT/HCPCS: 90004; 90074; 90100; 94001; 94060; 95059